=== PATIENT | female | born 1985 | race Hispanic/Latino ===

== ENCOUNTER 2017-08-29 10:34 | Emergency (ER) | payer BC, OTHER ==
[2017-08-29 10:41] VITALS: BP 113/79; PULSE 85; TEMP 98.2; O2SAT 100
--- NOTE | 2017-08-29 11:30 | C.PDOC ---
History Of Present Illness 32 year old female presents to the ED after she cut her finger. Patient states she was cutting a bone with a steak knife when she cut her left index finger and fingernail. Patient states she is up to date with her tetanus vaccine. Time Seen by Provider: 08/29/17 11:01 Chief Complaint (Nursing): Finger,Hand,&Wrist History Per: Patient, EMS History/Exam Limitations: no limitations Onset/Duration Of Symptoms: Hrs Current Symptoms Are (Timing): Still Present Location Of Injury: Left: Hand (Left index finger) Quality Of Symptoms: Painful Severity: None Recent travel outside of the [place]: No Past Medical History Reviewed: Historical Data, Nursing Documentation, Vital Signs Vital Signs: Last Vital Signs Temp 98.2 F 08/29/17 10:38 Pulse 85 08/29/17 10:38 Resp 18 08/29/17 12:23 BP 113/79 08/29/17 10:38 Pulse Ox 100 08/29/17 11:51 - Medical History PMH: Depression Surgical History: No Surg Hx Family History: States: Unknown Family Hx - Social History Hx Alcohol Use: No Hx Substance Use: No - Immunization History Hx Tetanus Toxoid Vaccination: Yes Hx Influenza Vaccination: Yes Hx Pneumococcal Vaccination: No Review Of Systems Constitutional: Negative for: Fever, Chills Cardiovascular: Negative for: Chest Pain Respiratory: Negative for: Cough, Shortness of Breath Gastrointestinal: Negative for: Nausea, Vomiting, Abdominal Pain Skin: Positive for: Other (Laceration to left index finger). Negative for: Rash Neurological: Negative for: Weakness, Numbness Physical Exam - Physical Exam Appears: Non-toxic, No Acute Distress Skin: Normal Color, Warm, Dry Head: Atraumatic, Normacephalic Oral Mucosa: Moist Neck: Normal Extremity: Normal ROM, Capillary Refill (< 2 sec\), Other (1 cm laceration to left index finger, 2-3 mm to the lateral nail margin) Pulses: Left Radial: Normal, Right Radial: Normal Neurological/Psych: Oriented x3, Normal Motor, Normal Sensation Gait: Steady ED Course And Treatment O2 Sat by Pulse Oximetry: 100 (On RA) Pulse Ox Interpretation: Normal Laceration - Laceration Repair No standard instances Wound Length (In cm): 1 cm Description Of Wound: Linear Wound Cleansed With: Sterile Saline Anesthesia: Lidocaine 1% Wound Examination: Irrigated With Saline, No FB With Wound Exploration Wound Closure: Steri Strips (X1), Skin Glue, Suture (X1) Wound Complexity: Simple Disposition - Disposition Referrals: [facility] [Outside] Disposition: HOME/ ROUTINE Disposition Time: 11:49 Condition: GOOD Additional Instructions: Keep the wound dry. Remove stitch in 7 days, Return if worsened. Instructions: Skin Adhesive Care (ED) Forms: [employer] (Albanian) - Clinical Impression Clinical Impression: Laceration of finger - PA / [employer] / Resident Statement MD/DO has reviewed & agrees with the documentation as recorded. - Scribe Statement The provider has reviewed the documentation as recorded by the Scribe Glenn Montes All medical record entries made by the Scribe were at my direction and personally dictated by me. I have reviewed the chart and agree that the record accurately reflects my personal performance of the history, physical exam, medical decision making, and the department course for this patient. I have also personally directed, reviewed, and agree with the discharge instructions and disposition.
[2017-08-29] MEDS ORDERED: Lidocaine 2% Inj (20ml) ONE (11:31)
[2017-08-29 12:24] VITALS: RESP 18
== END 2017-08-29 12:24 | disposition home or self-care (01) ==
LOC: C.ER 10:34
DX: S61.211A Laceration without foreign body of left index finger without damage to nail, initial encounter (principal); W26.0XXA Contact with knife, initial encounter; Y93.G1 Activity, food preparation and clean up; Y92.89 Other specified places as the place of occurrence of the external cause